=== PATIENT | male | born 1985 | race Caucasian/White ===

== ENCOUNTER 2018-12-17 14:20 | Emergency (ER) | payer MEDICAID ==
[~2018-12-17] VITALS: Ht 180.3 cm; Wt 99.3 kg
[2018-12-17 14:38] VITALS: Ht 180.3 cm; Wt 99.3 kg
[2018-12-17 17:02] VITALS: BP 120/64
== END 2018-12-17 17:02 | disposition home or self-care (01) ==
LOC: ED 14:20
DX: M54.42 Lumbago with sciatica, left side (principal)
CPT/HCPCS: J1885